=== PATIENT | female | born 1980 | race Caucasian/White ===

== ENCOUNTER 2018-09-20 06:49 | Emergency (ER) | payer OTHER ==
[~2018-09-20] VITALS: Ht 162.6 cm; Wt 86.2 kg
--- OUTSIDE RECORDS SUMMARY | ~2018-09-20 | XMS | Clinical Summary ---
Demographics + + + | Address | [address] | | | [place] [address] | + + + | Home Phone | | + + + | Preferred Language | Unknown | + + + | Marital Status | | + + + | Taoism Affiliation | 1013 | + + + | Race | Unknown | + + + | Ethnic Group | Unknown | + + + Author + + + | Author | [facility] | | | and [place] | + + + | Organization | [facility] | | | and [place] | + + + | Address | Unknown | + + + | Phone | Unavailable | + + + Support + + + + + | Name | Relationship | Address | Phone | + + + + + | Anders Mena | ECON | [address] | | | | | [place] [address] | | + + + + + | Rachel Mena | ECON | [address] | | | | | [place] [address] | | + + + + + Care Team Providers + +------+ + | Care Manager Grant Name | Role | Phone | + +------+ + | No, Unknownpcp | PP | | + +------+ + Allergies + + + +--------+ + | Active Allergy | Reactions | Severity | Noted | Comments | | | | | Date | | + + + +--------+ + | Penicillins | | | | | + + + +--------+ + Medications + + + +---------+------+------+-------+ | Medication | Sig | Dispensed | Refills | Star | End | Statu | | | | | | t | Date | s | | | | | | Date | | | + + + +---------+------+------+-------+ | Levofloxacin | TABS - Take 1 tablet | | 0 | 08/1 | | Activ | | (LEVAQUIN PO) | by mouth daily | | | 3/20 | | e | | | | | | 10 | | | + + + +---------+------+------+-------+ | | TABS - two tablets | | 0 | 08/1 | | Activ | | HYDROCODONE-ACETAMIN | by mouth as needed | | | 3/20 | | e | | OPHEN | for pain every four | | | 10 | | | | | hours | | | | | | + + + +---------+------+------+-------+ | Levonorgestrel | | | 0 | 07/0 | | Activ | | (MIRENA IU) | | | | 4/20 | | e | | | | | | 06 | | | + + + +---------+------+------+-------+ | lithium 300 mg | Take 2 capsules by | 120 | 0 | 10/0 | | Activ | | capsule | mouth 2 times daily | capsule | | 4/20 | | e | | | (with breakfast & | | | 15 | | | | | dinner). | | | | | | + + + +---------+------+------+-------+ | risperiDONE | Take 1 tablet by | 60 | 0 | 10/0 | | Activ | | (RISPERDAL) 2 MG | mouth 2 times daily. | tablet | | 4/20 | | e | | tablet | | | | 15 | | | + + + +---------+------+------+-------+ Active Problems + + + | Problem | Noted Date | + + + | SIALADENITIS | 01/09/2010 | + + + Social History + +-------+ +--------+------+ | Tobacco Use | Types | Packs/Day | Years | Date | | | | | Used | | + +-------+ +--------+------+ | Light Tobacco Smoker | | | | | + +-------+ +--------+------+ + + +---------+ + | Alcohol Use | Drinks/We | oz/Week | Comments | | | ek | | | + + +---------+ + | No | | | | + + +---------+ + + + + | Sex Assigned at | Date Recorded | | | | + + + | Not on file | | + + + + + + + | Job Start Date | Occupation | Industry | + + + + | Not on file | Not on file | Not on file | + + + + + + + + | Travel History | Travel Start | Travel End | + + + + + + | No recent travel history available. | + + Last Filed Vital Signs + + + + | Vital Sign | Reading | Time Taken | + + + + | Blood Pressure | 106/76 | 02/27/20152355 PDT | + + + + | Pulse | 104 | 02/27/20152355 PDT | + + + + | Temperature | 37.6 C (99.7 F) | 02/27/20152355 PDT | + + + + | Respiratory Rate | 20 | 02/27/20152355 PDT | + + + + | Oxygen Saturation | 98% | 02/27/20152355 PDT | + + + + | Inhaled Oxygen | - | - | | Concentration | | | + + + + | Weight | 45.4 kg (100 lb) | 02/27/20152037 PDT | + + + + | Height | 162.6 cm (5' 4") | 02/27/20152037 PDT | + + + + | Body Mass Index | 17.16 | 02/27/20152037 PDT | + + + + Plan of Treatment + + + + + | Health Maintenance | Due Date | Last Done | Comments | + + + + + | Vaccine: | | | | | Dtap/Tdap/Td (1 - | 2 | | | | Tdap) | | | | + + + + + | Cervical Cancer | | | | | Screening (Pap) | 3 | | | + + + + + | Vaccine: Influenza | | | | | (Season Ended) | 9 | | | + + + + + Results Not on filefrom Last 3 Months Insurance + +--------+ +--------+ +---------+--------+ | Payer | Benefi | Subscriber | Effect | Phone | Address | Type | | | t Plan | ID | pardeep | | | | | | / | | Dates | | | | | | Group | | | | | | + +--------+ +--------+ +---------+--------+ | [employer] | [employer] | [id number] | 05/23/ | [phone] | | Medica | | MEDICAID HMO | HEALTH | | 2015-P | 1 | | id | | | MD[place] | | [place] | | | | | [place] | | | | | | + +--------+ +--------+ +---------+--------+ + +--------+ +--------+ + + | Guarantor Name | Accoun | Relation to | Date | Phone | Billing Address | | | t Type | Patient | of | | | | | | | | | | + +--------+ +--------+ + + | Bess Maldonado | Person | Self [birth year] | [address] | | [place] | [place] | | 1981 | [phone] | [place], [place] | | | [place] | | | [address]) | [phone] | + +--------+ +--------+ + + Advance Directives Patient has advance care planning documents on file. For more information, please contact:[facility] [place] [address]
--- OUTSIDE RECORDS SUMMARY | ~2018-09-20 | XMS | Clinical Summary ---
Demographics + + + | Address | [address] | | | [place] [address] | + + + | Home Phone | | + + + | Preferred Language | Unknown | + + + | Marital Status | | + + + | Hindu Affiliation | 1013 | + + + | Race | Unknown | + + + | Ethnic Group | Unknown | + + + Author + + + | Author | [facility] | | | and [place] | + + + | Organization | [facility] | | | and [place] | + + + | Address | Unknown | + + + | Phone | Unavailable | + + + Support + + + + + | Name | Relationship | Address | Phone | + + + + + | Anders Mena | ECON | [address] | | | | | [place] [address] | | + + + + + | Rachel Mena | ECON | [address] | | | | | [place] [address] | | + + + + + Care Team Providers + +------+ + | Care Software Quality Assurance Specialist Name | Role | Phone | + [...] | [employer] | [employer] | [id number] | 05/23/ | [phone] | | Medica | | MEDICAID HMO [...] [place] | [place] | | 1981 | [phone] | [place], [place] | | | [place] | | | [address] ([place]) | [address] | + +--------+ +--------+ + + Advance Directives Patient has advance care planning documents on file. For more information, please contact:[facility] [place] [address]
[~2018-09-20 06:49] MED LIST: ACETAMINOPHEN325 M1 PO; ALBUTEROL SULF8.5 GM INH; DOXYCYCLINE HY100 MG PO; IBUPROFEN600 MG PO; IBUPROFEN800 MG PO; KEFLEX500 MG PO; LITHIUM CARBON300 M1 PO; METRONIDAZOLE500 MG PO; NORCO 5-325 TA1 EACH PO; RISPERDAL1 MG PO; TRAMADOL HCL50 MG PO
[2018-09-20] MEDS ORDERED: NORCO 10-325 T1 EACH PO (09:36)
[2018-09-20] MEDS ORDERED: IBUPROFEN600 MG PO (09:36)
[2018-09-20] MEDS ORDERED: ZOFRAN4 MG SL (09:36)
== END 2018-09-20 09:40 | disposition home or self-care (01) ==
LOC: ED 06:49
DX: N83.201 Unspecified ovarian cyst, right side (principal); J45.909 Unspecified asthma, uncomplicated; F31.9 Bipolar disorder, unspecified; Z88.0 Allergy status to penicillin
CPT/HCPCS: 74177; 80053; 81001; 83690; 84703; 85025; 96361; 99284-25; J1170; J1885; J2405; J7030; Q9967

== ENCOUNTER 2020-05-24 13:05 | Emergency (ER) | payer SELFPAY ==
[~2020-05-24] VITALS: Ht 162.6 cm; Wt 86.2 kg
[~2020-05-24 13:05] MED LIST changes: +NORCO 10-325 T1 EACH PO; +ZOFRAN4 MG SL
== END 2020-05-24 15:30 | disposition home or self-care (01) ==
LOC: ED 13:05
DX: S61.011A Laceration without foreign body of right thumb without damage to nail, initial encounter (principal); W26.8XXA Contact with other sharp object(s), not elsewhere classified, initial encounter; J45.909 Unspecified asthma, uncomplicated; Z87.891 Personal history of nicotine dependence; Z88.0 Allergy status to penicillin
CPT/HCPCS: 99282

== ENCOUNTER 2020-07-19 07:33 | Emergency (ER) | payer SELFPAY ==
[~2020-07-19] VITALS: Ht 162.6 cm; Wt 81.6 kg
[2020-07-19] MEDS ORDERED: BACTRIM DS TAB1 EACH PO (07:52)
== END 2020-07-19 08:46 | disposition home or self-care (01) ==
LOC: ED 07:33
DX: J02.9 Acute pharyngitis, unspecified (principal); Z87.891 Personal history of nicotine dependence; Z88.0 Allergy status to penicillin
CPT/HCPCS: 87880; 99283; A9270; J7512

== ENCOUNTER 2020-12-19 03:25 | Emergency (ER) | payer SELFPAY ==
[~2020-12-19] VITALS: Ht 162.6 cm; Wt 86.2 kg
[~2020-12-19 03:25] MED LIST changes: +BACTRIM DS TAB1 EACH PO
[2020-12-19] MEDS ORDERED: HEARTBURN RELIE10 MG PO (04:05)
[2020-12-19] MEDS ORDERED: PERCOCET 5-3251 EACH PO (05:38)
[2020-12-19] MEDS ORDERED: ZOFRAN4 MG PO (05:38)
[2020-12-19] MEDS ORDERED: CEPHALEXIN500 MG PO (05:38)
== END 2020-12-19 06:02 | disposition home or self-care (01) ==
LOC: ED 03:25
DX: N13.2 Hydronephrosis with renal and ureteral calculous obstruction (principal); J45.909 Unspecified asthma, uncomplicated; Z87.891 Personal history of nicotine dependence; Z88.0 Allergy status to penicillin; Z79.899 Other long term (current) drug therapy
CPT/HCPCS: 74176; 80053; 81001; 83690; 84703; 85025; 96374; 96375; 96376; 99284-25; J1170; J1885; J2405; J7030

== ENCOUNTER 2024-03-27 15:34 | Emergency (ER) | payer SELFPAY ==
[~2024-03-27] VITALS: Ht 162.6 cm; Wt 97.4 kg
[~2024-03-27 15:34] MED LIST changes: +CEPHALEXIN500 MG PO; +CIPRO500 MG PO; +HEARTBURN RELIE10 MG PO; +ONDANSETRON ODT4 MG PO; +PERCOCET 5-3251 EACH PO; +PYRIDIUM200 MG PO; +ZOFRAN4 MG PO
[2024-03-27 15:52] LABS: BILIRUBIN, URINE NEGATIVE (negative); BLOOD/HGB, URINE NEGATIVE (Negative); KETONE, URINE NEGATIVE (Negative); LEUK ESTERASE, URINE NEGATIVE (negative); NITRITE, URINE NEGATIVE (negative)
[2024-03-27] MEDS ORDERED: ondansetron HCL 4 MG/2 ML VIAL IV ONE (17:15)
[2024-03-27] MEDS ORDERED: SODIUM CHLORIDE 0.9% 1,000 ML IV ONE (17:15)
[2024-03-27] MEDS ORDERED: KETOROLAC TROMETHAMINE 30 MG/ML VIAL IV ONE (17:15)
[2024-03-27 17:28] LABS: BASOPHILS 0.3 % (0-2); EOSINOPHILS 2.2 % (0-6); HEMATOCRIT 39.4 % (35.0-50.0); HEMOGLOBIN 13.7 g/dL (12.0-18.0); LYMPHOCYTES 39.3 % (24-44); MCH 28.4 (27-36); MCHC 34.7 g/dl (30-36); MONOCYTES 6.1 % (0-12); NEUTROPHILS 52.1 % (39-80); PLATELET COUNT 255 K/uL (140-440); RBC 4.81 M/ul (4.3-5.7); RDW 12.6 (10.5-15.0)
[2024-03-27 17:37] LABS: ALBUMIN/GLOBULIN RATIO 1.03 (1.1-2.4); ANION GAP 13.3 (7-21); BILIRUBIN, TOTAL 0.2 ng/dL (0.2-1.0); BUN/CREATININE RATIO 18.57 (6.0-28.6); CREATININE, SERUM 0.7 mg/dL (0.55-1.02); POTASSIUM 3.3 mmol/L (3.5-5.1); PROTEIN, TOTAL 7.9 g/dL (6.4-8.2)
[2024-03-27] MEDS ORDERED: HYDROmorphone HCL 1 MG/ML SYR IV PRN (18:15)
[2024-03-27] MEDS ORDERED: TAMSULOSIN HCL 0.4 MG CAP PO ONE (18:15)
[2024-03-27] MEDS ORDERED: HYDROCODONE/ACETA 7.5/325 TAB PO ONE (18:45)
[2024-03-27] MEDS ORDERED: HYDROCODON-ACE1 EA11 PO (19:14)
[2024-03-27] MEDS ORDERED: ONDANSETRON ODT8 MG PO (19:14)
[2024-03-27] MEDS ORDERED: FLOMAX0.4 MG PO (19:14)
[2024-03-27] MEDS ORDERED: HYDROCODONE BIT/ACETAMINOPHEN 5/325 MG 1 TAB HOME.PACK PO ONE (19:15)
[2024-03-27 19:20] VITALS: BP 121/79
== END 2024-03-27 19:20 | disposition home or self-care (01) ==
LOC: ED 15:34
PROVIDERS: Emergency Medicine
DX: N20.1 Calculus of ureter (principal); J45.909 Unspecified asthma, uncomplicated; Z87.442 Personal history of urinary calculi; Z88.0 Allergy status to penicillin
CPT/HCPCS: 36415; 74177; 80053; 81003; 83690; 84703; 85025; 96375; 99284-25; A9270; J1171; J1885; J2405; J7030; Q9967

== ENCOUNTER 2024-08-13 05:45 | Day surgery (SDC) | payer BC ==
[~2024-08-13] VITALS: Ht 162.6 cm; Wt 95.9 kg
[~2024-08-13 05:45] MED LIST changes: +DOCUSATE SODIU100 MG PO; +FLOMAX0.4 MG PO; +HYDROCHLOROTH12.5 MG PO; +HYDROCODON-ACE1 EA11 PO; +LACTATED RINGER'S 1,000 ML IV SCH; +ONDANSETRON ODT8 MG PO; +OXYCODONE HCL5 MG PO; +VITAMIN D31250 MC2 PO
[2024-08-13 05:59] VITALS: BP 121/79
[2024-08-13] MEDS ORDERED: iopamidoL 30 ML VIAL ONE (06:37)
[2024-08-13] MEDS ORDERED: LACTATED RINGER'S 1,000 ML IV ONE (06:44)
[2024-08-13] MEDS ORDERED: DEXAMETHASONE SOD PHOS 4 MG/ML VIAL ONE (06:44)
[2024-08-13] MEDS ORDERED: fentaNYL citrate 100 MCG/2 ML VIAL ONE (06:44)
[2024-08-13] MEDS ORDERED: METOCLOPRAMIDE HCL 10 MG/2 ML SDV ONE (06:44)
[2024-08-13] MEDS ORDERED: FAMOTIDINE 20 MG/ 2 ML VIAL ONE (06:44)
[2024-08-13] MEDS ORDERED: propofoL 200 MG/20 ML VIAL ONE (06:44)
[2024-08-13] MEDS ORDERED: MIDAZOLAM HCL 2 MG/2 ML VIAL ONE (06:44)
[2024-08-13] MEDS ORDERED: KETOROLAC TROMETHAMINE 30 MG/ML VIAL ONE (06:44)
[2024-08-13] MEDS ORDERED: ondansetron HCL 4 MG/2 ML VIAL ONE (06:44)
[2024-08-13] MEDS ORDERED: IBLOOD GLUCOSE TEST STRIP 1 EA TEST VI PRN ×2 (07:00→08:30)
[2024-08-13] MEDS ORDERED: LIDOCAINE HCL 1% 5 ML SDV INJ ONE (07:00)
[2024-08-13] MEDS ORDERED: CEFAZOLIN SODIUM 2 GM/20 ML SYR IV SCH (07:00)
--- NOTE | 2024-08-13 07:19 | NUR ---
VISITED DURING SPIRITUAL CARE ROUNDS. PT EXPRESSED SIGNIFICANT ANXIETY, TERAFUL. IN ROOM CALM, SUPPORTIVE. DIRECTOR OF PUBLICATIONS PROVIDED ANXIETY CONTAINMENT, ANTICIPATORY GUIDANCE, HOSPITALITY, PRAYER. PT EXPRESSED SHE "FELT BETTER," GRATITUDE.
[2024-08-13] MEDS ORDERED: KETOROLAC TROMETHAMINE 30 MG/ML VIAL IV PRN (08:00)
[2024-08-13] MEDS ORDERED: dexmedeTOMIDine HCl 200 MCG/2 ML VIAL ONE (08:00)
[2024-08-13] MEDS ORDERED: ondansetron HCL 4 MG/2 ML VIAL IV PRN ×2 (08:00→08:30)
[2024-08-13] MEDS ORDERED: OXYCODONE/APAP 5/325 TAB PO PRN (08:00)
[2024-08-13] MEDS ORDERED: HYDROmorphone HCL 1 MG/ML SYR IV PRN (08:00)
[2024-08-13] MEDS ORDERED: PROCHLORPERAZINE EDISYLATE 10 MG/2 ML VIAL IV PRN (08:30)
[2024-08-13] MEDS ORDERED: fentaNYL citrate 50 MCG/ML SDV IV PRN (08:30)
[2024-08-13] MEDS ORDERED: NALOXONE HCL 0.4 MG SYR IV PRN (08:30)
[2024-08-13] MEDS ORDERED: METOCLOPRAMIDE HCL 10 MG/2 ML SDV IV PRN (08:30)
[2024-08-13] MEDS ORDERED: droPERidol 5 MG/2 ML VIAL IV PRN (08:30)
[2024-08-13] MEDS ORDERED: MORPHINE SULFATE 10 MG/ML VIAL IV PRN (08:30)
[2024-08-13] MEDS ORDERED: ACETAMINOPHEN 1,000 MG/100 ML VIAL ONE (08:36)
--- NOTE | 2024-08-13 09:14 | NUR ---
08/13/24 0914 Maria Elena Gupta 0859- PT PRESENTS TO PACU, SEMI MARIO POSITION, NON REACTIVE TO STIMULUS. OPA IN PLACE, BREATHING EVEN AND NON LABORED, O2 AT 6L PER MASK. ABD SOFT, NON DISTENDED, STERI STRIPS TO LOW ABD FOR STENT STRING, NO BLEEDING NOTED. ALL MONITORS IN PLACE. LR INFUSING TO LH IV. 0910- PT REMAINS NON REACTIVE AT THIS TIME. BREATHING EVEN AND NON LABORED.
[2024-08-13 10:25] VITALS: BP 114/75
--- NOTE | 2024-08-13 10:27 | NUR ---
LE 1020: PT IS BACK TO DS FROM PACU. SHE IS AWAKE AND ALERT, REPORTING PAIN 6/10. SHE HAS A HOT PACK IN PLACE AT THIS TIME. SHE IS TOLERATING WATER. SHE IS GIVEN PUDDING. FAMILY IS AT THE BEDSIDE. CALL LIGHT WITHIN REACH. NO ADDITIONAL NEEDS AT THIS TIME.
[2024-08-13 11:18] VITALS: BP 108/61
--- NOTE | 2024-08-13 11:21 | NUR ---
1120- PT GETS UP TO USE THE RESTROOM INDEPENDENTLY. PT RETURNS FROM RESTROOM AND IS ABLE TO GET DRESSED WITH ASSISTANCE FROM HER . PT REPORTS NO NAUSEA AND PAIN IS AT A 4-5/10 THAT IS TOLERABLE. PT DENIES HAVING BLOOD IN HER VOID. PT HAS MET DISCHARGE CRITERIA.
[2024-08-13 12:19] VITALS: BP 108/69
--- NOTE | 2024-08-13 12:39 | NUR ---
1230- PT AMBULATES TO RESTROOM INDEPENDENTLY. PT IS DRESSED AND SITTING UP IN THE STRETCHER. PT REPORTS 4-10 PAIN THAT IS TOLERABLE AND DENIES NAUSEA. IV REMOVED. VITAL SIGNS OBTAINED. DISCHARGE INFORMATION GONE OVER, AND PT AND DENY QUESTIONS OR CONCERNS. PT HAS ALL BELONGINGS. PT DC FROM DAY SURGERY WITH PAPERWORK VIA WHEELCHAIR AND IS PICKED UP AT THE ENTERANCE BY HER .
[2024-08-13] MEDS ORDERED: SEVOFLURANE 250 ML BTL INH ONE (15:19)
[2024-08-15 18:54] LABS: CALCULI MASS 30 mg (())
== END 2024-08-13 12:30 | disposition home or self-care (01) ==
LOC: OPS 05:45 → DS 05:45 → OPS 07:30 → DS 07:30 → OPS 12:30
PROVIDERS: ATTEND Urology
PROC: 0TC78ZZ Extirpation of Matter from Left Ureter, Via Natural or Artificial Opening Endoscopic (ICD-10-PCS; principal; 2024-08-13 07:30)
PROC: BT1FZZZ Fluoroscopy of Left Kidney, Ureter and Bladder (ICD-10-PCS; 2024-08-13 07:30)
DX: N20.1 Calculus of ureter (principal)
CPT/HCPCS: 00918; 76000; 82365; C1726; C1758; C1769; C2617; J0131; J0690; J1100; J1171; J1885; J2250; J2270; J2405; J2704; J2765; J3010; J7121